=== PATIENT | male | born 1965 | race Two or more races ===

== ENCOUNTER 2021-10-16 05:55 | Day surgery (SDC) | payer OTHER | END 2021-10-16 11:20 | disposition home or self-care (01) | LOC: AMB-ENDOS 05:55 | PROVIDERS: ATTEND Colon & Rectal Surgery | DX: D12.7 Benign neoplasm of rectosigmoid junction (principal); D12.3 Benign neoplasm of transverse colon; D12.4 Benign neoplasm of descending colon ==